=== PATIENT | male | born 1935 | race African-American/Black ===

== ENCOUNTER 2019-09-29 06:35 | Day surgery (SDC) | payer OTHER ==
[2019-09-27 13:15] VITALS: BMI 24.3
[~2019-09-29 06:35] MED LIST: TOBRAMYCIN/DEXAMETHASONE OPHTH. OINTMENT 1 TUBE TP ONE
[2019-09-29] MEDS: CIPROFLOXACIN HCL 0.3% OPHTH 2.5ML BOTTLE OP SCH ×2 (06:45→07:00)
[2019-09-29] MEDS: TROPICAMIDE 1% OPHTH SOLN 15 ML BOTTLE OP SCH ×3 (06:45→07:15)
[2019-09-29] MEDS: KETOROLAC TROMETHAMINE 0.5% EYE DROP 1 DROP DROPS OP SCH ×2 (06:45→07:00)
[2019-09-29] MEDS ORDERED: ACETAMINOPHEN 325 MG TABLET (FP) PO PRN ×2 (06:45→10:54)
[2019-09-29] MEDS: PHENYLEPHRINE 2.5% OPHTH SOLN 15 ML BOTTLE OP SCH ×3 (06:45→07:15)
[2019-09-29] MEDS ORDERED: PHENYLEPHRINE 2.5% OPHTH SOLN 15 ML BOTTLE ONE (07:10)
[2019-09-29] MEDS ORDERED: CIPROFLOXACIN HCL 0.3% OPHTH 2.5ML BOTTLE ONE (07:10)
[2019-09-29] MEDS ORDERED: TROPICAMIDE 1% OPHTH SOLN 15 ML BOTTLE ONE (07:10)
[2019-09-29] MEDS ORDERED: KETOROLAC TROMETHAMINE 0.5% EYE DROP 1 DROP DROPS ONE (07:11)
[2019-09-29] MEDS ORDERED: POVIDONE-IODINE 5% OPHTHALMIC PREP 30 ML SOLUTION ONE (07:17)
[2019-09-29] MEDS ORDERED: TOBRAMYCIN/DEXAMETHASONE OPHTH. OINTMENT 1 TUBE ONE (07:17)
[2019-09-29] MEDS ORDERED: TRYPAN BLUE 0.5 ML DISP.SYRIN ONE (07:17)
[2019-09-29] MEDS ORDERED: EPINEPHrine/PF 1 MG/1 ML (1:1,000) AMPULE ONE (07:17)
[2019-09-29] MEDS ORDERED: TETRACAINE 0.5% OPHTH SOLN 2 ML BOTTLE ONE (07:17)
--- NOTE | 2019-09-29 07:23 | HP ---
- Patient Scheduled date of Surgery: 09/29/19 Scheduled Surgical Procedure: Phacoemulsification and cataract extraction with PCIOL Affected Eye: Right Chief Complaint (Indication for surgery): Decreased vision affecting ADLs - Ocular History Other Eye History: POAG Eye Medications: cosopt, travatan, vigamox Previous Eye Surgery: none - Medical History Illnesses: Hypertension Current Medications: Ambulatory Orders Lisinopril/Hydrochlorothiazide [Lisinopril-Hctz 20-12.5 mg Tab] 1 each PO DAILY 09/27/19 Allergies/Adverse Reactions: Allergies Allergy/AdvReac Type Severity Reaction Status Date / Time No Known Drug Allergies Allergy Verified 09/27/19 13:20 Ocular Examination - Best Corrected Visual Acuity Distance: Left eye: 20/60 Near: Right eye: 20/50 +2 - External/Slit Lamp Examination Abnormalities: spk inferiorly - Intraocular Pressure Intraocular Pressure - Right eye: 14 Intraocular Pressure-Left eye: 14 - Lens Lens: 3+ NS - Vitreous/Retina Vitreous/Retina: C:D 0.5 m/v/p wnl - Special Examination M - Right eye: -1.25-0.75 x 095 M - Left eye: -1.25 -0.75 x 065 K - Right eye: 45.25/45.50 x 090 K - Left eye: 45.25/45.75 x 100 AL - Right eye: 22.67 AL - Left eye: 22.75 IOL bag: +21.5 AUOOTO IOL sulcus: +20.5 MN60AC IOL AC: +18.0 MTA 4uo - Impression Impression: Cataract Right Eye - Plan Plan: Phacoemulsification and cataract extraction - IOL Right eye Post-hospital care will be provided in office on: 09/30/19
--- NOTE | 2019-09-29 07:25 | HP ---
History & Physical Update - History History: No Change - Physical Physical: No Change - Assessment Assessment: No Change - Plan Plan: No Change (H and P reviewed from 08/29/[address] Higuera , no changes)
[2019-09-29] MEDS ORDERED: MIDAZOLAM HCL 2 MG/2 ML SINGLE DOSE VIAL ONE (07:34)
[2019-09-29] MEDS ORDERED: TETRACAINE 0.5% OPHTH SOLN 2 ML BOTTLE TP ONE (08:04)
[2019-09-29] MEDS ORDERED: LIDOCAINE HCL 1% PRESERVATIVE FREE - 30ML VIAL IO ONE (08:12)
[2019-09-29] MEDS ORDERED: CHONDROITIN SU A/HYALUR SOD 1 KIT IO ONE ×2 (08:13)
[2019-09-29] MEDS ORDERED: EPINEPHrine/PF 1 MG/1 ML (1:1,000) AMPULE SQ ONE (08:16)
[2019-09-29] MEDS ORDERED: TOBRAMYCIN/DEXAMETHASONE OPHTH. OINTMENT 1 TUBE TP ONE (08:41)
--- NOTE | 2019-09-29 08:50 | OP ---
Ophthalmology Operative Note Pre-Operative Diagnosis: Cataract Affected Eye: Right Operation: Phacoemulsification and cataract extraction with PCIOL Findings: mature cataract Post-Operative Diagnosis: Other (mature cataract right eye) Handle Rounder Operator: None Anesthesiologist: Sarah Mann Anesthesia: Topical Specimens Removed: none Estimated blood loss: < 1 cc Drains & Tubes with Location: none Operative Report Dictated: Yes
[2019-09-29 09:23] VITALS: TEMP 98
--- NOTE | 2019-09-29 09:34 | OP ---
DATE OF OPERATION: DATE OF DICTATION: 09/29/2019 PREOPERATIVE DIAGNOSIS: Nuclear sclerotic cataract, right eye. POSTOPERATIVE DIAGNOSIS: Mature cataract, right eye. PROCEDURE: Phacoemulsification and cataract extraction with insertion of posterior chamber intraocular lens, right eye. SURGEON: Zhanna Schultz MD SPECIAL WARFARE OPERATOR: None. ANESTHESIA: Topical. ANESTHESIOLOGIST: YUMI Nuñez-DESIREE OPERATIVE PROCEDURE: The patient received tetracaine eye drops and was gently sedated and prepped and draped in the usual sterile fashion so as to expose only the right eye. Ophthalmic Betadine was instilled into the inferior fornix. The lashes were taped out of the surgical field. An eyelid speculum was placed into the right eye. A paracentesis was made in superior temporal clear cornea at the limbus. Then 0.5 mL of nonpreserved lidocaine 1% was injected into the anterior chamber and 2 mL of dilute epinephrine 1:10,000 was injected into the anterior chamber. Viscoelastic material was instilled into the anterior chamber via the paracentesis. A 2.4-mm keratome was then used to create the main incision in temporal clear cornea at the limbus. A continuous curvilinear capsulorrhexis was performed using a cystotome and Utrata forceps. Hydrodissection of the lens cortex was performed using BSS on a cannula until the nucleus was noted to be freely rotating. The phacoemulsification tip was then inserted via the main wound and used to sculpt 2 perpendicular grooves into the lens nucleus. Viscoat was injected into the groove, and a nucleus cracker was used to crack the lens into 4 quadrants. Each quadrant was lifted out of the capsule into the iris plane and individually phacoemulsified. The remaining cortical material was then aspirated using the irrigation/aspiration port. The capsular bag was inflated using Provisc and a preloaded AcrySof lens model [id number] power +21.5 diopters was injected into the capsular bag and centered using a Sinskey hook. The residual viscoelastic material was removed from the anterior chamber using irrigation and aspiration. The wound edges were hydrated using BSS. The wound was tested for leakage and was found to be watertight. Tobradex ointment was placed in the eye. The speculum was removed from the eye, and the eyelid was closed. A sterile dressing and shield were placed over the eye. The patient was transferred to the recovery room in stable condition, told to follow up in 1 day. ZHANNA SCHULTZ M.D. [id number]
[2019-09-29 10:01] VITALS: BP 130/70; PULSE 56
[2019-09-29] MEDS ORDERED: ONDANSETRON 4 MG/2 ML VIAL IVPUSH PRN (10:54)
[2019-09-29] MEDS ORDERED: LACTATED RINGERS SOLUTION 1,000 ML IV SCH (11:00)
== END 2019-09-29 10:01 | disposition home or self-care (01) ==
LOC: JASU-SURG 06:35
PROVIDERS: ATTEND Ophthalmology
PROC: 08RJ3JZ Replacement of Right Lens with Synthetic Substitute, Percutaneous Approach (ICD-10-PCS; principal; 2019-09-29 09:30)
DX: H25.091 Other age-related incipient cataract, right eye (principal)

== ENCOUNTER 2021-06-27 04:38 | Day surgery (SDC) | payer OTHER ==
[2021-06-25 16:35] VITALS: BMI 23.3
[2021-06-27] MEDS ORDERED: LIDOCAINE HCL/PF 1% SDV 5ML VIAL ONE (07:16)
[2021-06-27] MEDS ORDERED: POVIDONE-IODINE 5% OPHTHALMIC PREP 30 ML SOLUTION ONE (07:16)
[2021-06-27] MEDS ORDERED: TOBRAMYCIN/DEXAMETHASONE OPHTH. OINTMENT 1 TUBE ONE (07:16)
[2021-06-27] MEDS ORDERED: TETRACAINE 0.5% OPHTH SOLN 2 ML BOTTLE ONE (07:16)
[2021-06-27] MEDS ORDERED: DICLOFENAC SODIUM 0.1% OPHTHALMIC 2.5ML BOTTLE ONE (08:54)
[2021-06-27] MEDS: TROPICAMIDE 1% OPHTH SOLN 15 ML BOTTLE ONE ×3 (09:00→09:10)
[2021-06-27] MEDS: DICLOFENAC SODIUM 0.1% OPHTHALMIC 2.5ML BOTTLE OS SCH ×3 (09:00→09:10)
[2021-06-27] MEDS: PHENYLEPHRINE 2.5% OPTHALMIC DROP BOTTLE ONE ×3 (09:00→09:10)
[2021-06-27] MEDS: CIPROFLOXACIN 0.3% EYE DROPS 5 ML BOTTLE ONE ×3 (09:00→09:31)
[2021-06-27] MEDS ORDERED: TROPICAMIDE 1% OPHTH SOLN 15 ML BOTTLE OP SCH (09:45)
[2021-06-27] MEDS ORDERED: CIPROFLOXACIN HCL 0.3% OPHTH 2.5ML BOTTLE OP SCH (09:45)
[2021-06-27] MEDS ORDERED: PHENYLEPHRINE 2.5% OPHTH SOLN 15 ML BOTTLE OP SCH (09:45)
[2021-06-27] MEDS ORDERED: MIDAZOLAM HCL 2 MG/2 ML SINGLE DOSE VIAL ONE (10:54)
[2021-06-27] MEDS ORDERED: EPINEPHrine/PF 1 MG/1 ML (1:1,000) AMPULE ONE (10:55)
[2021-06-27] MEDS ORDERED: TETRACAINE 0.5% HCL 0.6ML DROPPER.BOTTLE TP ONE (10:56)
[2021-06-27] MEDS ORDERED: POVIDONE-IODINE 5% OPHTHALMIC PREP 30 ML SOLUTION OS ONE (10:58)
[2021-06-27] MEDS ORDERED: CHONDROITIN SU A/HYALUR SOD 1 KIT IO ONE ×2 (11:06→11:12)
[2021-06-27] MEDS ORDERED: EPINEPHrine/PF 1 MG/1 ML (1:1,000) AMPULE SQ ONE ×2 (11:06→11:12)
[2021-06-27] MEDS ORDERED: BSS (NA/CA/MG/K) BALANCED SALT SOLUTION OPHTH SOLN 15 ML BOTTLE IO ONE (11:07)
[2021-06-27] MEDS ORDERED: LIDOCAINE HCL 1% PRESERVATIVE FREE - 30ML VIAL IO ONE (11:08)
[2021-06-27] MEDS ORDERED: TOBRAMYCIN/DEXAMETHASONE OPHTH. OINTMENT 1 TUBE OD ONE (11:28)
[2021-06-27 12:16] VITALS: BP 149/78; PULSE 70; TEMP 98.1
== END 2021-06-27 12:20 | disposition home or self-care (01) ==
LOC: JASU-SURG 04:38
PROVIDERS: ATTEND Ophthalmology
PROC: 08RK3JZ Replacement of Left Lens with Synthetic Substitute, Percutaneous Approach (ICD-10-PCS; principal; 2021-06-27 10:30)
DX: H26.9 Unspecified cataract (principal)